=== PATIENT | female | born 1985 | race Caucasian/White ===

== ENCOUNTER 2017-11-23 15:40 | Emergency (ER) | payer OTHER ==
[2017-11-23 15:52] VITALS: BP 147/91; PULSE 93; TEMP 98.9; BMI 27.7
--- NOTE | 2017-11-23 15:53 | PDOC ---
Rapid Medical Evaluation Time Seen by Provider: 11/23/17 15:49 Medical Evaluation: Allergies Allergy/AdvReac Type Severity Reaction Status Date / Time No Known Allergies Allergy Verified 11/23/17 15:49 11/23/17 15:50 I have performed a brief in-person evaluation of this patient. The patient presents with a chief complaint of swollen nose after cleaning cat' s litter box. Denies shortness of breath Took no medication so far. Pertinent physical exam findings NAD HEENT: neck supple, no stridor, nose swollen at tip, speech clear lungs clear bilaterally I have ordered the following: urine hcg, The patient will proceed to the ED for further evaluation.
--- NOTE | 2017-11-23 16:24 | PDOC ---
History of Present Illness - General Chief Complaint: Edema Stated Complaint: SWOLLEN NOSE Time Seen by Provider: 11/23/17 15:49 - History of Present Illness Initial Comments: 11/23/17 16:19 CHIEF COMPLAINT: "swollen nose" HISTORY OF PRESENT ILLNESS: 32 yo F with no significant PMH presents to fast track with "swollen nose and itching" s/p cleaning out litter box. Patient denies any cough, fever, chills, nausea, vomiting diarrhea. No recent travel or sick contacts. PAST MEDICAL HISTORY: Denies past medical history FAMILY HISTORY: Denies SOCIAL HISTORY: Denies tobacco, alcohol, illicit drug use. SURGICAL HISTORY: Denies ALLERGIES: No known drug allergies REVIEW OF SYSTEMS per HPI PHYSICAL EXAM General Appearance: Well-appearing, appropriately dressed. No apparent distress. HEENT: Minimal erythema to nose, no swelling appreciated. EOMI, PERRLA, normal ENT inspection, normal voice, TMs normal, pharynx normal. No conjunctival pallor. No photophobia, scleral icterus. Respiratory/Chest: Lungs CTAB. Cardiovascular: RRR. S1, S2. Gastrointestinal/Abdominal: Normal bowel sounds. Abdomen soft, non-distended. No tenderness or rebound tenderness. No organomegaly, pulsatile mass, guarding , hernia, hepatomegaly, splenomegaly. Musculoskeletal/Extremities: Normal inspection. FROM of all extremities, normal capillary refill. Pelvis Stable. No CVA tenderness. No tenderness to extremities, pedal edema, swelling, erythema or deformity. Integumentary: Appropriate color, dry, warm. No cyanosis, erythema, jaundice or rash Neurologic: rehabilitation medicine physician II-XII intact. Fully oriented, alert. Appropriate mood/affect. Motor strength 5/5. No appreciable EOM palsy, facial droop or sensory deficit. Past History - Past Medical History Allergies/Adverse Reactions: Allergies Allergy/AdvReac Type Severity Reaction Status Date / Time No Known Allergies Allergy Verified 11/23/17 15:49 Home Medications: Ambulatory Orders Diphenhydramine [Benadryl Capsule -] 50 mg PO Q8H PRN #12 capsule 11/23/17 Epinephrine [Epipen] 0.3 mg IJ ASDIR #1 auto.injct 11/23/17 COPD: No Other medical history: MIGRANES - Suicide/Smoking/Psychosocial Hx Smoking History: Never smoked *Physical Exam - Vital Signs Last Vital Signs Temp Pulse Resp BP Pulse Ox 98.9 F 93 H 18 147/91 99 11/23/17 15:49 11/23/17 15:49 11/23/17 15:49 11/23/17 15:49 11/23/17 15:49 Medical Decision Making - Medical Decision Making 11/23/17 16:22 32 yo F with no significant PMH presents to fast track with "swollen nose and itching" s/p cleaning out litter box. Patient is well appearing and in no respiratory distress. Minimaal erythema to b/l sides of nose, likely from rubbing. Benadryl po *DC/Admit/Observation/Transfer Diagnosis at time of Disposition: Allergic reaction - Discharge Dispostion Disposition: HOME Condition at time of disposition: Stable Admit: No - Prescriptions Prescriptions: Diphenhydramine [Benadryl Capsule -] 50 mg PO Q8H PRN #12 capsule PRN Reason: itching Epinephrine [Epipen] 0.3 mg IJ ASDIR #1 auto.injct - Referrals Referrals: Laverne White MD [Primary Care Provider] - - Patient Instructions Printed Discharge Instructions: DI for General Allergic Reactions Additional Instructions: Please take medications as prescribed. As discussed, the medication may make you drowsy, so do not drink alcohol, drive, or operate machinery after you have taken this medicine. Follow up with the performance architect for allergy testing. If you develop ANY swelling to the throat, tongue, lips, neck, throat, or have any difficulty breathing, please use the Epipen as directed and go to the nearest ER. - Post Discharge Activity
== END 2017-11-23 16:27 | disposition home or self-care (01) ==
LOC: JERFT 15:40
DX: T78.40XA Allergy, unspecified, initial encounter (principal); X58.XXXA Exposure to other specified factors, initial encounter
CPT/HCPCS: 84703; 99281-25

== ENCOUNTER 2018-01-23 07:26 | Emergency (ER) | payer OTHER ==
[2018-01-23 07:50] VITALS: BP 135/84; PULSE 89; TEMP 98.9; BMI 28.3
--- NOTE | 2018-01-23 08:10 | PDOC ---
Attending Attestation - Resident Resident Name: Osmar Arechiga - ED Attending Attestation I have performed the following: I have examined & evaluated the patient, The case was reviewed & discussed with the resident, I agree w/resident's findings & plan, Exceptions are as noted - Medical Decision Making 01/23/18 08:09 I, Dr. Sandra Sanchez, DO, attest that this document has been prepared under my direction and personally reviewed by me in its entirety. I further attest, that it accurately reflects all work, treatment, procedures and medical decision -making performed by me. 01/23/18 08:30 a/p: 32yo female with medial thigh rash b/l -had her thighs rubbing together during [employer] (wearing shorts) and again while walking yesterday -suspect chaffing vs contact dermatitis -no ring worm -no warmth -no concern for infection at this time - mild erytehma to thighs that has improved with topical cortisone cream -has a senior financial accountant - Dr. oRsario -recommended continuation of cortisone cream over hte and if it doesn't improve to return to the ED or follow up with her PMD/Pot P[employer]her on Thursday -pt agrees iwth the plan -stable for d/c to home <Sandra Sanchez - Last Filed: 01/23/18 08:30> - HPI HPI: 01/23/18 08:57 The patient is a 32-year-old female, with a significant past medical history of migraines, who presents to the ED with 1 day of bilateral rash on thighs. The patient noted the rash yesterday as she was sitting on the cough. The rash on her left leg was itchy and the itchiness resolved after using cortisone cream, vicks, and taking a dose of benadryl. She reports that she was at [employer] class two days ago and wore shorts for the first time this season. Throughout the class she did feel her thighs rubbing. She denies wearing any new clothing or using any new detergents. She denies having any other symptoms. Allergies: NKA PCP: Dr. White - Physicial Exam PE: 01/23/18 08:57 GENERAL: Awake, alert, and fully oriented, in no acute distress HEAD: No signs of trauma EYES: PERRLA, EOMI, sclera anicteric, conjunctiva clear ENT: Auricles normal inspection, hearing grossly normal, nares patent, oropharynx clear without exudates. Moist mucosa NECK: Normal ROM, supple, no lymphadenopathy, JVD, or masses LUNGS: Breath sounds equal, clear to auscultation bilaterally. No wheezes, and no crackles HEART: Regular rate and rhythm, normal S1 and S2, no murmurs, rubs or gallops ABDOMEN: Soft, nontender, normoactive bowel sounds. No guarding, no rebound. No masses EXTREMITIES: (+)Two erythematous regions to bilateral thighs in the area where her thighs rub. Normal range of motion. No clubbing or cyanosis. No cords. NEUROLOGICAL: Cranial nerves II through XII grossly intact. Normal speech, normal gait SKIN: Warm, Dry, normal turgor. <Jenny Orozco - Last Filed: 01/23/18 09:00> Attestations - Attestations 01/23/18 08:59 Documentation prepared by Jenny Orozco, acting as chief medical physicist for Sandra Sanchez DO. <Jenny Orozco - Last Filed: 01/23/18 09:00>
--- NOTE | 2018-01-23 08:33 | PDOC ---
History of Present Illness - General Chief Complaint: Rash Stated Complaint: RASH Time Seen by Provider: 01/23/18 08:01 History Source: Patient Exam Limitations: No Limitations - History of Present Illness Initial Comments: 01/23/18 08:28 32F with pmh of migraines presents with b/l rash to the inner thigh since yesterday. The left-sided rash is itchy, relieved with vicks and cortisone cream. Patient states that she was exercising at her [employer] class 2 days ago and wore short for it for the first time this season. [place] her thighs were rubbing together a lot after that. No new detergents use, no new clothes. Has 2 cats and a lizard who don't go outside. No recent hiking or bike riding activity. Past History - Past Medical History Allergies/Adverse Reactions: Allergies Allergy/AdvReac Type Severity Reaction Status Date / Time No Known Allergies Allergy Verified 01/23/18 07:47 Home Medications: Ambulatory Orders Diphenhydramine [Benadryl Capsule -] 50 mg PO Q8H PRN #12 capsule 11/23/17 COPD: No - Suicide/Smoking/Psychosocial Hx Smoking History: Never smoked Review of Systems - Review of Systems Able to Perform ROS?: Yes Is the patient limited Turkmen proficient: No Constitutional: No: Symptoms Reported HEENTM: No: Symptoms Reported Respiratory: No: Symptoms reported Cardiac (ROS): No: Symptoms Reported ABD/GI: No: Symptoms Reported : No: Symptoms Reported Musculoskeletal: No: Symptoms Reported Integumentary: Yes: See HPI Neurological: No: Symptoms reported All Other Systems: Reviewed and Negative *Physical Exam - Vital Signs Last Vital Signs Temp Pulse Resp BP Pulse Ox 98.9 F 89 18 135/84 99 01/23/18 07:44 01/23/18 07:44 01/23/18 07:44 01/23/18 07:44 01/23/18 07:44 - Physical Exam General Appearance: Yes: Nourished, Appropriately Dressed. No: Apparent Distress HEENT: positive: EOMI, ETHAN, Normal ENT Inspection Respiratory/Chest: positive: Lungs Clear, Normal Breath Sounds. negative: Chest Tender, Respiratory Distress Cardiovascular: positive: Regular Rhythm, Regular Rate, S1, S2 Integumentary: positive: Other (5cm erythematous, falciform rash with sharply delineated borders in the upper inner thighs) Neurologic: positive: Fully Oriented, Alert, Normal Mood/Affect Medical Decision Making - Medical Decision Making 01/23/18 08:36 32f with erythematous rash in the iner thighs for the past day. This is likely local skin irritation from sweat/chaffing. There is no evidence of hives or eczema, indicating allergic reaction. No insect bite sukhi identified , would be unlikely presentation. Advised patient to protect area when exercising and follow up with her systems designer. *DC/Admit/Observation/Transfer Diagnosis at time of Disposition: Skin irritation - Discharge Dispostion Disposition: HOME Condition at time of disposition: Good Admit: No - Referrals Referrals: Laverne White MD [Primary Care Provider] - - Patient Instructions Printed Discharge Instructions: DI for Rash Additional Instructions: Follow up with your systems designer. Come back to the emergency room for any new, worsening or concerning symptoms such as fever. chills or drainage of pus. - Post Discharge Activity
== END 2018-01-23 09:03 | disposition home or self-care (01) ==
LOC: JER 07:26
DX: L30.4 Erythema intertrigo (principal)
CPT/HCPCS: 99281-25

== ENCOUNTER 2018-06-01 12:50 | Emergency (ER) | payer OTHER ==
[2018-06-01 13:12] VITALS: BP 140/81; PULSE 72; TEMP 98.7; BMI 27.3
[2018-06-01] MEDS ORDERED: SODIUM CHLORIDE 0.9% 500 ML INFUS.BAG IV ONE (13:37)
[2018-06-01] MEDS ORDERED: ACETAMINOPHEN 500 MG TABLET (FP) PO ONE (13:37)
[2018-06-01] MEDS ORDERED: METOCLOPRAMIDE HCL INJECTION 10 MG/2 ML VIAL IVPUSH ONE (13:38)
--- NOTE | 2018-06-01 13:40 | PDOC ---
History of Present Illness - General Chief Complaint: Migraine Headache Stated Complaint: MIGRAINE HEADACHE Time Seen by Provider: 06/01/18 13:35 - History of Present Illness Initial Comments: 32-year-old female with past medical history significant for moderate migraines presents for evaluation of migraine 4 days. She states this is typical of her headaches however this one is just not going away with normal anti-inflammatory medication. She does have mild associated nausea 06/01/18 13:39 Past History - Past Medical History Allergies/Adverse Reactions: Allergies Allergy/AdvReac Type Severity Reaction Status Date / Time No Known Allergies Allergy Verified 06/01/18 13:09 Home Medications: Ambulatory Orders Diphenhydramine [Benadryl Capsule -] 50 mg PO Q8H PRN #12 capsule 11/23/17 COPD: No Other medical history: MIGRANES - Suicide/Smoking/Psychosocial Hx Smoking History: Never smoked Review of Systems - Review of Systems ABD/GI: Yes: Nausea Neurological: Yes: Headache All Other Systems: Reviewed and Negative *Physical Exam - Vital Signs Last Vital Signs Temp Pulse Resp BP Pulse Ox 98.7 F 72 17 140/81 99 06/01/18 13:09 06/01/18 13:09 06/01/18 13:09 06/01/18 13:09 06/01/18 13:09 - Physical Exam Comments: HEAD: NC/AT EYES: Conjuntiva clear, EOMI, PERRL Ears: Canals and TM's normal NOSE: No d/c THROAT: Moist mucous membrances, oral pharanx clear, uvula midline NECK: Supple without adenopathy CARDIAC: S1 S2 LUNGS: CTA Full and Equal breath sounds ABDOMEN: Soft NT ND MS: Full ROM in all joints without edema NEUROLOGIC: No gross sensory or motor deficits, NVID SKIN: Normal color and temperature no lesions or rashes 06/01/18 13:39 Medical Decision Making - Medical Decision Making Patient states she was driving sore discontinue the Benadryl she seemed anxious about the IV and I discontinue the Reglan. She got a bolus of normal saline and a dose of Tylenol IV and her migraine resolved 06/01/18 14:26 *DC/Admit/Observation/Transfer Diagnosis at time of Disposition: Migraine - Discharge Dispostion Disposition: HOME Condition at time of disposition: Improved Decision to Admit order: No - Referrals - Patient Instructions Printed Discharge Instructions: DI for Migraine, Migraine -- Adult Additional Instructions: Turned to the emergency room should symptoms come back. Otherwise follow-up with your neurologist in 2-3 days for further evaluation and treatment options. Resume your normal medications - Post Discharge Activity
[2018-06-01] MEDS ORDERED: ACETAMINOPHEN 500 MG TABLET (FP) ONE ×2 (13:48→14:04)
== END 2018-06-01 15:37 | disposition home or self-care (01) ==
LOC: JERFT 12:50
DX: G43.909 Migraine, unspecified, not intractable, without status migrainosus (principal)
CPT/HCPCS: 99281-25

== ENCOUNTER 2019-01-05 09:43 | Emergency (ER) | payer OTHER ==
[2019-01-05 09:57] VITALS: BP 136/86; PULSE 79; TEMP 98.3; BMI 26.3
--- NOTE | 2019-01-05 10:32 | PDOC ---
History of Present Illness - General Chief Complaint: Pain Stated Complaint: LF ARM PAIN Time Seen by Provider: 01/05/19 10:14 History Source: Patient Exam Limitations: No Limitations Past History - Travel Traveled outside of the country in the last 30 days: No Close contact w/someone who was outside of country & ill: No - Past Medical History Allergies/Adverse Reactions: Allergies Allergy/AdvReac Type Severity Reaction Status Date / Time No Known Allergies Allergy Verified 01/05/19 09:57 Home Medications: Ambulatory Orders Ibuprofen 600 mg PO Q6H #30 tablet 01/05/19 COPD: No - Suicide/Smoking/Psychosocial Hx Smoking History: Never smoked Have you smoked in the past 12 months: No Information on smoking cessation initiated: No Hx Alcohol Use: No Drug/Substance Use Hx: No Review of Systems - Review of Systems Able to Perform ROS?: Yes Comments:: 01/05/19 10:37 CONSTITUTIONAL: Absent: fever, chills, diaphoresis, generalized weakness, malaise, loss of appetite HEENT: Absent: rhinorrhea, nasal congestion, throat pain, throat swelling, difficulty swallowing, mouth swelling, ear pain, eye pain, visual Changes MUSCULOSKELETAL: Present: L wrist pain Absent: myalgia, arthralgia, joint swelling SKIN: Absent: rash, itching, pallor NEUROLOGIC: Absent: headache, focal weakness or paresthesias, dizziness, unsteady gait, seizure, mental status changes, bladder or bowel incontinence PSYCHIATRIC: Absent: anxiety, depression, suicidal or homicidal ideation, hallucinations. Is the patient limited Persian proficient: No *Physical Exam - Vital Signs Last Vital Signs Temp Pulse Resp BP Pulse Ox 98.3 F 79 18 136/86 99 01/05/19 09:52 01/05/19 09:52 01/05/19 09:52 01/05/19 09:52 01/05/19 09:52 - Physical Exam Comments: 01/05/19 10:37 GENERAL: Well developed, well nourished. Awake and alert. No acute distress. MUSCULOSKELETAL L wrist with FROM. No TTP of the lateral or medial wrist. Able to perform finger opposition with all fingers in the hand. (-) tinels testing, finklestein testing. Normal range of motion at all joints. No bony deformities or tenderness. No CVA tenderness. EXTREMITIES: No cyanosis. No clubbing. No edema. No calf tenderness. SKIN: Warm and dry. Normal capillary refill. No rashes. No jaundice. NEUROLOGICAL: Alert, awake, appropriate. Cranial nerves 2-12 intact. No deficits to light touch and temperature in face, upper extremities and lower extremities. No motor deficits in the in face, upper extremities and lower extremities. Normoreflexic in the upper and lower extremities. Normal speech. Toes are down- going bilaterally. Gait is normal without ataxia. PSYCHIATRIC: Cooperative. Good eye contact. Appropriate mood and affect. Medical Decision Making - Medical Decision Making 01/05/19 10:39 the patient is a 33-year-old female with no past medical history who presents to the ER with left wrist pain. Patient states that her symptoms started on Thursday night. She states that she noticed that the wrist has been swelling and that it is painful to the left fifth and fourth digits. Denies any trauma, lifting heavy boxes, falling. States that the pain increases with the swelling increases. Denies fevers, chills, numbness and tingling to the extremity weakness to the affected extremity. A/P: Left wrist pain. Patient is right-hand dominant. On exam wrist has full range of motion no tenderness to palpation of the lateral or medial wrist. Suspect an impingement of the ulnar nerve. Patient took Motrin prior to ED arrival Discharge home with a wrist splint and orthopedic follow-up. X-ray deferred as there was no trauma. I discussed the physical exam findings, ancillary test results and final diagnoses with the patient. I answered all of the patient's questions. The patient was satisfied with the care received and felt comfortable with the discharge plan and treatment plan. The Patient agrees to follow up with the primary care physician/specialist within 24-72 hours. Return precautions were given. *DC/Admit/Observation/Transfer Diagnosis at time of Disposition: Left wrist pain - Discharge Dispostion Disposition: HOME Condition at time of disposition: Stable Decision to Admit order: No - Referrals Referrals: Adam So MD [Staff Physician] - Jaret Cochran MD [Staff Physician] - Roger Dumont DO [Staff Physician] - - Patient Instructions Printed Discharge Instructions: DI for Wrist Pain Additional Instructions: You were evaluated for your wrist pain today. I suspect the pain is coming from her ulnar nerve. Please wear the wrist splint at night. He may wear it during the day as well for comfort. Please take Motrin 600 mg every 6 hours as needed for pain. Please follow-up with orthopedics. Referrals been provided. Return to the ER for worsening pain, numbness and tingling to the hand, or if you have any changes in your symptoms. - Post Discharge Activity Forms/Work/School Notes: Back to Work
== END 2019-01-05 10:50 | disposition home or self-care (01) ==
LOC: JERFT 09:43
PROC: 2W3DX1Z Immobilization of Left Lower Arm using Splint (ICD-10-PCS; principal; 2019-01-05)
DX: M25.532 Pain in left wrist (principal)
CPT/HCPCS: 29125; 99281-25

== ENCOUNTER 2019-04-02 11:25 | Emergency (ER) | payer OTHER ==
[2019-04-02 11:38] VITALS: BP 122/83; PULSE 84; TEMP 99.3; BMI 28.7
--- NOTE | 2019-04-02 12:08 | PDOC ---
History of Present Illness - General Chief Complaint: Ear Problem Stated Complaint: RT PAIN Time Seen by Provider: 04/02/19 11:54 History Source: Patient Exam Limitations: No Limitations - History of Present Illness Initial Comments: 04/02/19 12:22 Complaints of right ear pain 2 days. States felt swelling that progressively worsened since yesterday with tenderness to the inner aspect of outer ear. States used a Q-tip to try to clean out but caused more pain. Timing/Duration: unsure Severity: mild, moderate Associated Symptoms: reports: denies symptoms Past History - Travel Traveled outside of the country in the last 30 days: No Close contact w/someone who was outside of country & ill: No - Past Medical History Allergies/Adverse Reactions: Allergies Allergy/AdvReac Type Severity Reaction Status Date / Time No Known Allergies Allergy Verified 01/05/19 09:57 Home Medications: Ambulatory Orders Ibuprofen 600 mg PO Q6H #30 tablet 01/05/19 Amox-Tr/K Cl [Augmentin 875Mg Tablet] 1 tab PO BID #20 tablet 04/02/19 COPD: No - Suicide/Smoking/Psychosocial Hx Smoking History: Never smoked Have you smoked in the past 12 months: No Information on smoking cessation initiated: No Hx Alcohol Use: No Drug/Substance Use Hx: No Review of Systems - Review of Systems Able to Perform ROS?: Yes Is the patient limited Moldovan proficient: Yes Constitutional: Yes: Symptoms Reported, See HPI, Malaise. No: Chills, Fever HEENTM: Yes: Symptoms Reported, See HPI, Ear Pain Respiratory: Yes: See HPI. No: Symptoms reported, Cough Integumentary: Yes: Symptoms Reported, See HPI, Erythema, Lesions, Lumps (2 right tragus) *Physical Exam - Vital Signs Last Vital Signs Temp Pulse Resp BP Pulse Ox 99.3 F 84 18 122/83 98 04/02/19 11:33 04/02/19 11:33 04/02/19 11:33 04/02/19 11:33 04/02/19 11:33 - Physical Exam General Appearance: Yes: Nourished, Appropriately Dressed, Apparent Distress, Mild Distress HEENT: positive: ETHAN, Normal ENT Inspection, TMs Normal (left TM intact, no redness swelling or tenderness to canal. Right TM has swelling to canal and tragus with a lesion noted to this to the inner aspect that entrance of canal. Has severe tender without drainage. TM appears to be dusky but landmarks visualized) Neck: positive: Supple, Lymphadenopathy (R), Lymphadenopathy (L) Respiratory/Chest: positive: Lungs Clear, Normal Breath Sounds *DC/Admit/Observation/Transfer Diagnosis at time of Disposition: Otitis externa Qualifiers: Otitis externa type: unspecified type Chronicity: acute Laterality: right Qualified Code(s): H60.501 - Unspecified acute noninfective otitis externa, right ear - Discharge Dispostion Disposition: HOME Condition at time of disposition: Stable Decision to Admit order: No - Referrals Referrals: Laverne White MD [Primary Care Provider] - - Patient Instructions Printed Discharge Instructions: DI for Cellulitis -- Adult Additional Instructions: Rest, keep area elevated. Avoid strenuous activity or exercise until wound is healed Use hot soaks to area to bring more blood to the surface and encourage drainage Allow water from shower to wash area thoroughly for 2-3 minutes, and pat dry upon exit of shower and replace dressing. Change his dressing daily until the wound is completely healed. May use Tylenol or Motrin for mild pain relief Continue all medications as prescribed Followup with private physician in 2-3 days for wound check Return to emergency Department for worsening swelling, pain, redness, fevers as needed - Post Discharge Activity Forms/Work/School Notes: Back to Work
== END 2019-04-02 13:19 | disposition home or self-care (01) ==
LOC: JERFT 11:25 → JER 11:25 → JERFT 13:19
DX: H60.501 Unspecified acute noninfective otitis externa, right ear (principal)
CPT/HCPCS: 84703; 99281-25